=== PATIENT | male | born 1985 | race Caucasian/White ===

== ENCOUNTER 2016-10-17 17:31 | Emergency (ER) | payer SELFPAY ==
[2016-10-17 18:24] VITALS: BMI 18.4
[2016-10-17] MEDS ORDERED: NS 1,000 ML IV ONE ×2 (18:31→20:30)
--- NOTE | 2016-10-17 18:31 | EDPRACDOC ---
- General Information Chief Complaint: Nausea,Vomiting,Diarrhea Stated Complaint: VOMITING Time Seen by Provider: 10/17/16 18:23 Home Medications: Home Medications Ondansetron [Zofran Odt] 4 mg PO TID PRN #10 tabguido 10/17/16 - History of Present Illness Onset: TODAY HPI: PT REPORTS N/V ALL DAY, TNTC, STATS UNABLE TO TOLERATE ANY PO INTAKE, STATES ABD IS DIFFUSELY TENDER FROM "THROWING UP", STATES HANDS AND FINGERS ARE TINGLING AND HE FEELS CHILLED, FAMILY MEMBER WITH PT STATES THAT THIS HAS HAPPENED TO HIM SEVERAL TIMES IN THE PAST. Symptoms Occured: Reports: Spontaneous Duration: Reports: Intermittent Emesis: Reports: Food Particles Recent: Reports: None Pain Quality: Reports: Aching Pain Severity: Mild Pain Location: Reports: Diffuse Associated Signs and Symptoms: Reports: Chills, Nausea, Vomiting. Denies: Fever , Diarrhea, Anorexia, Hematemesis, Melena, Dysuria, Frequency, Urgency, Hematuria, Hematochezia Oral Intake: Normal Urinary Output: Normal ED Past Medical History - History Reviewed Yes Nurses notes reviewed and agree except as marked No Past Medical History: Yes Patient has no past medical history - Social Medical History Smoking Status: Heavy tobacco smoker (5 or more cigarettes/day or daily pipe/ cigar) ETOH: None Substance Abuse: Illicit Drugs (THC) EDM Review of Systems - Review of Systems Constitutional: Chills. negative: Fever Eyes: negative: Blurred Vision, Double Vision Ears: negative: Drainage Throat: negative: Pain Nose: negative: Congestion, Discharge Respiratory: negative: Cough, Shortness of Breath, Wheezing Cardiovascular: negative: Chest Pain, Palpitations Gastrointestinal: Nausea, Pain, Vomiting. negative: Diarrhea Genitourinary: negative: Dysuria, Frequency Neurological: negative: Dizziness, Headache, Numbness, Weakness Musculoskeletal: No Symptoms Reported Integumentary: No Symptoms Reported - Physical Exam Constitutional: Alert (Awake), No apparent distress Oriented to: Time, Person, Place Last recorded Vital Signs: Last Vital Signs Temp 98.0 F 10/17/16 18:23 Pulse 51 L 10/17/16 18:23 Resp 20 10/17/16 18:23 BP 154/86 10/17/16 18:23 Pulse Ox 99 10/17/16 18:23 Oxygen Pulse Oxygen Saturation 99 O2 Device Room Air Oxygen Flow Rate Fraction of Inspired Oxygen ( FIO2) - HEENT Head: Normal ( normocephalic) Eye Exam: Normal (PERRL, EOMI, Sclera white) Oropharynx: Normal (Pharynx:Moist without exudate,Gums-no swelling) Tympanic Membrane: Normal ENT EAC: Normal TMJ: Normal Nose: No Symptoms Reported (septum midline) Neck: Normal (FROM, trachea at midline) - Respiratory/Cardiovascular Respiratory: Normal - CTA (BBS clear to auscultation without adventitious sounds ) Cardiovascular: Normal (RRR without murmur, gallop or rub) - GI Auscultation: Normal (NABS) Palpation: Normal (Soft,No rebound or guarding, non distended) Tenderness: Non tender Howell's Sign: Negative - Musculoskeletal Back: Normal (Non-Tender) Extremities: Normal (Normal tone, Pulses 2+ No cyanosis or edema, FROM) - Integumentary Skin: Normal, Warm, Dry Lymphatics: Normal (no adenopathy) - Neurologic Memory Impaired: Normal Motor Function: Normal (Normal tone, Pulses 2+ No cyanosis or edema, FROM) Cranial Nerve: Normal (CN II-X11 intact sensation, strength 5/5) Cerebellar: Normal Mood Description: Anxious Perception: Normal - Differential Diagnosis Dehydration, Food poisoning, Gastritis, Gastroenteritis, Pancreatitis - Re-evaluation Re-evaluation 1 Re-evaluation Time: 20:47 (FEELS A LITTLE BETTER) Re-evaluation 2 Re-evaluation Time: 21:41 (SLEEPING QUIETLY NO DISTRESS) - Results 10/17/16 19:13 10/17/16 19:13 10/17/16 20:50 Laboratory Results - last 24 hr 10/17/16 10/17/16 10/17/16 18:45 18:45 19:13 WBC RBC Hgb Hct MCV MCH MCHC RDW Plt Count MPV Neut % (Auto) Lymph % (Auto) [place] % (Auto) Eos % (Auto) Baso % (Auto) Absolute Neuts (auto) Absolute Lymphs (auto) Sodium 143 Potassium 3.8 Chloride 102 Carbon Dioxide 27 Anion Gap 18 H BUN 10 Creatinine 0.90 Estimated GFR (MDRD) > 60 Glucose 95 Calculated Osmolality 274 Calcium 9.6 Total Bilirubin 1.0 AST 28 ALT 33 Alkaline Phosphatase 97 Total Protein 7.7 Albumin 4.7 Lipase 82 Urine Color Yellow Urine Clarity Sl hzy Urine pH 9.0 H Ur Specific [place] </=1.005 Urine Protein 3+ H Urine Glucose (UA) Neg Urine Ketones 3+ H Urine Occult Blood Neg Urine Nitrite Neg Urine Bilirubin Neg Urine Urobilinogen <2.0 Ur Leukocyte Esterase Neg Urine RBC 2-5 H Urine WBC 2-5 H Urine Mucus Occ Urine Opiates Screen *positive* H Ur Oxycodone Screen Neg Urine Methadone Screen Neg Ur Barbiturates Screen Neg Ur Tricyclics Screen Neg Ur Phencyclidine Scrn Neg Ur Amphetamines Screen Neg U Methamphetamines Scrn Neg Urine MDMA Screen Neg U Benzodiazepines Scrn Neg Urine Cocaine Screen Neg Ur THC Screen *positive* H 10/17/16 19:13 WBC 9.5 RBC 5.09 Hgb 15.5 Hct 45.7 MCV 90 MCH 30.5 MCHC 34.0 RDW 12.5 Plt Count 221 MPV 8.3 Neut % (Auto) 78.6 H Lymph % (Auto) 15.0 L [place] % (Auto) 4.7 Eos % (Auto) 0.7 Baso % (Auto) 1.0 Absolute Neuts (auto) 7.41 Absolute Lymphs (auto) 1.43 Sodium Potassium Chloride Carbon Dioxide Anion Gap BUN Creatinine Estimated GFR (MDRD) Glucose Calculated Osmolality Calcium Total Bilirubin AST ALT Alkaline Phosphatase Total Protein Albumin Lipase Urine Color Urine Clarity Urine pH Ur Specific [place] Urine Protein Urine Glucose (UA) Urine Ketones Urine Occult Blood Urine Nitrite Urine Bilirubin Urine Urobilinogen Ur Leukocyte Esterase Urine RBC Urine WBC Urine Mucus Urine Opiates Screen Ur Oxycodone Screen Urine Methadone Screen Ur Barbiturates Screen Ur Tricyclics Screen Ur Phencyclidine Scrn Ur Amphetamines Screen U Methamphetamines Scrn Urine MDMA Screen U Benzodiazepines Scrn Urine Cocaine Screen Ur THC Screen Decision Time to Discharge: 21:41 - Departure Disposition: Home Condition: Stable Final Diagnosis: Nausea and vomiting Instructions: Acute Nausea and Vomiting (ED) Education/Counseling Given To: Patient Education/Counseling Given Regarding: Diagnosis, Treatment, Prognosis, Follow Up Referrals: Jorge Dietrich MD [Staff Physician] - One Week Prescriptions: Ondansetron [Zofran Odt] 4 mg PO TID PRN #10 tab.rapdis PRN Reason: Nausea/Vomiting Additional Instructions: CLEAR LIQUIDS ONLY FOR THE REST OF THE NIGHT, ADVANCE DIET TO BLAND TOLERATED , RETURN TO THE ED FOR ANY WORSENING SYMPTOMS OR CONCERNS.
[2016-10-17] MEDS ORDERED: LORAZEPAM 2 MG/ML VIAL IV ONE (18:32)
[2016-10-17 19:00] LABS: ALL NEG? NO
[2016-10-17 19:07] LABS: MDMA* NEG (NEGATIVE); METHAMPHETAMINES NEG (NEGATIVE); OXYCODONE NEG (NEGATIVE)
[2016-10-17 19:22] LABS: AUTOMATED EOSINOPHIL 0.7 % (0-5); AUTOMATED MONOCYTE 4.7 % (3-10); AUTOMATED NEUTROPHIL 78.6 % (45-76); MPV 8.3 fL (7.4-10.4)
[2016-10-17 19:28] LABS: LEUKOCYTES/URINE NEG (NEGATIVE); NITRITE/URINE NEG (NEGATIVE); URINE OCCULT BLOOD NEG (NEG/TRACE)
[2016-10-17 19:35] LABS: BLOOD UREA NITROGEN 10 MG/DL (9-20); CALCIUM 9.6 MG/DL (8.4-10.2); CALCULATED OSMOLALITY 274 MOs/Kg (270-290); CHLORIDE 102 mEq/L (98-107); GLUCOSE 95 MG/DL (70-99); SODIUM LEVEL 143 mEq/L (137-146); TOTAL PROTEIN 7.7 G/DL (6.3-8.2)
[2016-10-17] MEDS ORDERED: ONDANSETRON HCL 4 MG/2 ML VIAL IV ONE (20:14)
[2016-10-17 21:27] VITALS: BP 130/60; PULSE 54; TEMP 98.1
== END 2016-10-17 22:09 | disposition home or self-care (01) ==
LOC: EDMC 17:31
DX: R11.2 Nausea with vomiting, unspecified (principal); F17.210 Nicotine dependence, cigarettes, uncomplicated
CPT/HCPCS: 36415; 80053; 80307; 81001; 83690; 85025; 96361; 96374; 96375; 99283; J2060; J2405